=== PATIENT | male | born 1980 | race Caucasian/White ===

== ENCOUNTER 2018-09-06 09:12 | Emergency (ER) | payer MEDICAID, OTHER ==
[~2018-09-06] VITALS: Ht 188 cm; Wt 84.0 kg
[2018-09-06 09:16] VITALS: BP 157/85; PULSE 84; RESP 18; Ht 188 cm; Wt 84.0 kg
[2018-09-06] MEDS ORDERED: IMIQ1CRE14 TOP (10:30)
--- NOTE | 2018-09-06 10:32 | ERD ---
ER Documentation Chief Complaint Chief Complaint pt is bib family with c/o male genital problem x 6 months, not visualized HPI 38-year-old male presents with several complaints regarding his genitals. He said some intermittent skin lesions at the base of his penis. None currently. They are associated with hair follicles may express discharge but none currently. He also has additional lesions on the shaft he did remove some with his fingernails but he has a few which remain. He is concerned as he had a sexual partner who was told that HPV. He denies any cough, shortness of breath or chest pain or additional symptoms. He is requesting STD testing as well. ROS All systems reviewed and are negative except as per history of present illness. Medications Home Meds Active Scripts Imiquimod (Imiquimod) 5% Cream.pack, 1 PACKET TOP 3 x/ week for 28 Days, EA Prov:SURAJ BENDER MD 09/06/18 Allergies Allergies: Coded Allergies: No Known Allergy (Unverified , 09/06/18) PMhx/Soc Hx Alcohol Use: Yes Hx Substance Use: Yes Hx Tobacco Use: Yes Smoking Status: Current every day smoker FmHx Family History: No diabetes, No coronary disease, No other Physical Exam Vitals Vital Signs Date Temp Pulse Resp B/P (MAP) Pulse Ox O2 O2 Flow FiO2 Time Delivery Rate 09/06/18 98.3 84 18 157/85 100 09:16 (109) Physical Exam Const: No acute distress Head: Atraumatic Eyes: Normal Conjunctiva ENT: Normal External Ears, Nose and Mouth. Neck: Full range of motion. No meningismus. Resp: Clear to auscultation bilaterally Cardio: Regular rate and rhythm, no murmurs Abd: Soft, non tender, non distended. Normal bowel sounds Skin: No petechiae or rashes. The base of the penis on the left shows small less than 1-2 mm verruca lesions. No erythema, discharge. There are a few areas of chronic scarring from inflamed hair follicles. Back: No midline or flank tenderness Ext: No cyanosis, or edema Neur: Awake and alert Psych: Normal Mood and Affect Procedures/MDM Patient presents with signs and symptoms of healing folliculitis of the base of the penis. Also has lesions consistent with condyloma. He will be treated with alDara 3 times a week for 1 month. She was advised to hold treatment expenses burning. He was referred to primary care for further evaluation and and STD testing as required. We will however send gonorrhea chlamydia. Patient has no evidence of torsion, signs or symptoms of Remy's gangrene, additional genital emergencies. The patient was stable with no new complaints during the ER course. Clinically, there is no current evidence to suggest meningitis, sepsis, acute abdomen, pneumonia, stroke, acute coronary syndrome, pulmonary embolism, aortic dissection or any other emergent condition appearing to require further evaluation or hospitalization. Patient counseled regarding my diagnostic impression and care plan. Prior to discharge all questions answered. Pt agrees with treatment plan and understands strict return precautions. Pt is instructed to follow up with primary care provider within 24-48 hours. Precautio nary instructions provided including instructions to return to the ER if not improving or for any worsening or changing symptoms or concerns. Departure Diagnosis: Primary Impression: Genital warts Patient Instructions: Genital Warts (Condyloma), Genital HPV: Diagnosis and Treatment [facility] Usted se carpio hecho un examen mdico de control que le indica que no est en flynn condicin que requiera tratamiento urgente en el Departamento de Emergencia. Un estudio ms profundo y el tratamiento de espana condicin pueden esperar sin ningn riesgo hasta que usted sea atendida/o en el consultorio de espana mdico o flynn clnica. Es responsabilidad suya arreglar flynn sayra para el seguimiento del reba. MANEJO DE CONDICIONES NO URGENTES EN EL FUTURO 1) Si usted tiene un mdico de atencin primaria: Usted debera llamar a espana mdico de atencin primaria antes de venir al departamento de emergencia. Despus de las horas de consultorio, espana doctor o espana asociado/a est disponible por telfono. El mdico o enfermero de maryann en el servicio telefnico puede asesorarle por abiola medio para atender el problema, o reba contrario se puede programar flynn sayra. 2) Si usted no tiene un mdico de atencin primaria: Llame al mdico o clnica de referencia que aparece abajo reji las horas de consultorio para hacer flynn sayra para que le vean. CLINICAS: [facility] [phone] [facility] [phone] [facility] [phone] [place] [phone] [place] [phone] [facility] [phone] [address] Additional Instructions: Apply cream 3 times a week for 1 month. Apply only to affected area. Hold treatment if experiencing burning. See primary doctor for further evaluation treatment and primary care. Recheck otherwise for new or worsening symptoms. Additional lesions appear to be ingrown hairs. Recheck for worsening redness, swelling, new worsening symptoms. SURAJ BENDER MD Sep 06, 2018 10:32
== END 2018-09-06 10:50 | disposition home or self-care (01) ==
LOC: FTE 09:12
DX: A63.0 Anogenital (venereal) warts (principal); F17.210 Nicotine dependence, cigarettes, uncomplicated
CPT/HCPCS: 87591; Z7502; 99283